=== PATIENT | female | born 1995 | race Caucasian/White ===

== ENCOUNTER 2018-12-14 15:03 | Emergency (ER) | payer SELFPAY ==
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
[2018-12-14] MEDS ORDERED: Ketorolac 60 MG/2 ML SDV IM ONE (16:57)
[2018-12-14 17:09] LABS: CHLORIDE,CL 107 mmol/L (98-107); SODIUM,NA 143 mmol/L (136-145)
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
== END 2018-12-14 18:35 | disposition home or self-care (01) ==
LOC: MW.ED 15:03
DX: T76.11XA Adult physical abuse, suspected, initial encounter (principal); S09.90XA Unspecified injury of head, initial encounter; S80.02XA Contusion of left knee, initial encounter; S80.01XA Contusion of right knee, initial encounter; S00.83XA Contusion of other part of head, initial encounter; S30.810A Abrasion of lower back and pelvis, initial encounter; S29.9XXA Unspecified injury of thorax, initial encounter; F17.210 Nicotine dependence, cigarettes, uncomplicated; Y04.2XXA Assault by strike against or bumped into by another person, initial encounter
CPT/HCPCS: 36415; 70450; 71045; 72100; 72192; 80053; 80305; 81001; 81025; 85025; 87491; 87591; 96372; 99284; J1885

== ENCOUNTER 2018-12-14 18:17 | Emergency (ER) | payer MEDICAID | END 2018-12-14 19:00 | disposition home or self-care (01) | LOC: MW.ED 18:17 | DX: Z11.8 Encounter for screening for other infectious and parasitic diseases (principal) | CPT/HCPCS: 36415; 87340; 87389; 99281 ==

== ENCOUNTER 2018-12-22 03:41 | Emergency (ER) | payer MEDICAID ==
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
[2018-12-22 04:40] LABS: CHLORIDE,CL 106 mmol/L (98-107); SODIUM,NA 140 mmol/L (136-145)
== END 2018-12-22 08:41 ==
LOC: MW.ED 03:41
DX: F32.9 Major depressive disorder, single episode, unspecified (principal); Z79.899 Other long term (current) drug therapy
CPT/HCPCS: 36415; 80053; 80305; 81001; 83735; 84443; 85025; 93005; 99285; G0480; 99283

== ENCOUNTER 2020-11-26 12:47 | Emergency (ER) | payer OTHER ==
--- NOTE | 2020-11-26 13:27 | EDM.PDOC ---
ED HPI GENERAL MEDICAL PROBLEM - General Chief Complaint: Headache Stated Complaint: HIP, BACK PAIN Time Seen by Provider: 11/26/20 13:15 - History of Present Illness INITIAL COMMENTS - FREE TEXT/NARRATIVE: 25-year-old female who is otherwise well presents with left sided back pain and headache after a fall. This morning while walking into [facility] the patient slipped on ice falling backward and landing on her left posterior hip and striking her head. She had brief tunnel vision but no LOC. Initially with adrenaline she was walking around the store and felt relatively well but over the last several hours has developed worsening pain there is a significant headache that worsens with coughing worsens with talking worsens with laughter. She also has a significant left posterior upper back as well as midline lower back and left posterior pelvic pain. No extremity pain no lower extremity weakness no difficulty walking no urinary or bowel incontinence. Head, hip, back, tailbone Pain Score (Numeric/FACES): 6 - Related Data Allergies Allergy/AdvReac Type Severity Reaction Status Date / Time No Known Allergies Allergy Verified 11/26/20 13:18 Home Meds: Home Meds Loratadine/Pseudoephedrine [Claritin-D 24 Hour Tablet] 1 tab PO DAILY PRN 11/26/20 [History] Past Medical History Psychiatric History: Reports: Anxiety, Bipolar, Depression, Panic Attack, Other (See Below) Other Psychiatric History: manic depressive - Infectious Disease History Infectious Disease History: Reports: Chicken Pox Social & Family History - Family History Family Medical History: No Pertinent Family History ED ROS GENERAL - Review of Systems Review Of Systems: See Below Free Text/Narrative/Comment: Eyes: No vision problems. Neck: No neck stiffness. Respiratory: No shortness of breath. Cardiac: No chest pain. Gastrointestinal: No nausea, vomiting or abdominal pain. Musculoskeletal: Per HPI Neurologic: Per HPI ED EXAM, GENERAL - Physical Exam Exam: See Below Free Text/Narrative:: General Appearance: No acute distress, appears comfortable Skin: No rash HEENT: Normocephalic/atraumatic, sclera anicteric, mucous membranes moist Neck: Normal range of motion, no midline cervical spine tenderness Chest and Lungs: Bilateral breath sounds, clear to auscultation Cardiovascular: Regular rate and rhythm, no murmur Abdomen: Soft, non-tender Back: No midline T-spine tenderness there is midline L-spine tenderness L2-L5 without crepitus or deformity or step-off Musculoskeletal: Minimal tenderness over left scapula and inferior left trap underlying crepitus or deformity, no focal tenderness of the bilateral shoulders elbows hips or knees. No limitation in range of motion of the bilateral upper or lower extremities. Neurologic: Awake, alert, no obvious deficits, moving all extremities Psychiatric: Appropriate, cooperative Course - Vital Signs Last Recorded V/S: Last Vital Signs Temp 97.3 F 11/26/20 13:14 Pulse 93 11/26/20 13:14 Resp 17 11/26/20 13:14 BP 117/76 11/26/20 13:14 Pulse Ox 96 11/26/20 13:14 - Orders/Labs/Meds Labs: Laboratory Tests 11/26/20 Range/Units 13:25 Urine HCG, Qual NEGATIVE (NEGATIVE) Departure - Departure Time of Disposition: 14:48 Disposition: Home, Self-Care 01 Condition: Good Clinical Impression: Concussion, Contusion of lower back - Discharge Information *PRESCRIPTION DRUG MONITORING PROGRAM REVIEWED*: Not Applicable *COPY OF PRESCRIPTION DRUG MONITORING REPORT IN PATIENT ÓSCAR: Not Applicable Instructions: Concussion, Adult Referrals: PCP,None [Primary Care Provider] - Additional Instructions: You may have trouble with headache and lower back discomfort for the next few days. However you should be feeling your normal self by to light next week. If you have persistent symptoms then please follow-up with one of the primary care clinics. [facility] [address] [place] [address] [place] [address] The following information is given to patients seen in the emergency department who are being discharged to home. This information is to outline your options for follow-up care. We provide all patients seen in our emergency department with a follow-up referral. The need for follow-up, as well as the timing and circumstances, are variable depending upon the specifics of your emergency department visit. If you don't have a primary care physician on staff, we will provide you with a referral. We always advise you to contact your personal physician following an emergency department visit to inform them of the circumstance of the visit and for follow-up with them and/or the need for any referrals to a consulting specialist. The emergency department will also refer you to a specialist when appropriate. This referral assures that you have the opportunity for follow-up care with a specialist. All of these measure are taken in an effort to provide you with optimal care, which includes your follow-up. Under all circumstances we always encourage you to contact your private physician who remains a resource for coordinating your care. When calling for follow-up care, please make the office aware that this follow-up is from your recent emergency room visit. If for any reason you are refused follow-up, please contact the [facility] Emergency Department at and asked to speak to the emergency department charge nurse. Sepsis Event Note (ED) - Evaluation Sepsis Screening Result: No Definite Risk - Focused Exam Vital Signs: Vital Signs Temp Pulse Resp BP Pulse Ox 11/26/20 13:14 97.3 F 93 17 117/76 96 - Assessment/Plan Assessment:: 25-year-old female presenting after ground-level fall as described primary survey intact secondary survey notable for findings in the lower back in the left posterior pelvis given headache and other symptoms CT scan of the brain ordered as well as lumbar x-ray and pelvis x-ray. I believe you can clinically clear the chest abdomen and nonbony pelvis as well as the extremities. Patient ambulates well she has no pain in her hips. Patient has some mild superficial tenderness in the left trap but she has no underlying focal bony tenderness her breath sounds are equal she is no shortness of breath she has no pleuritic chest pain I do not have a clinical concern for pneumothorax or underlying fracture of the upper torso. 1450: Imaging negative. Return precaution discussed and understood patient discharged.
--- NOTE | 2020-11-26 14:30 | CR ---
HISTORY: Fall. Midline lumbar spine tenderness. TECHNIQUE: Lumbar spine 3 views. COMPARISON: Lumbar spine radiographs 12/14/2018. FINDINGS: Five lumbar type vertebral bodies. Alignment, vertebral body heights, and disc spaces are maintained. IMPRESSION: Unremarkable radiographs of the lumbar spine. Dictated by Sebastian Guzmán MD @ Nov 26 2020 2:26PM Signed by Dr. Sebastian Guzmán @ Nov 26 2020 2:29PM
--- NOTE | 2020-11-26 14:30 | CT ---
HISTORY: Fall. Head trauma. TECHNIQUE: CT brain without contrast. COMPARISON: CT brain 12/14/2018. FINDINGS: No acute intracranial hemorrhage. No extra-axial collection. No mass effect or midline shift. No ventricular dilation. Cisterns are patent. De Anda-white differentiation is maintained. Calvarium is intact. Visualized paranasal sinuses and mastoid air cells are clear. IMPRESSION: No acute intracranial abnormality. Please note that all CT scans at this facility use dose modulation, iterative reconstruction, and/or weight-based dosing when appropriate to reduce radiation dose to as low as reasonably achievable. Dictated by Sebastian Guzmán MD @ Nov 26 2020 2:26PM Signed by Dr. Sebastian Guzmán @ Nov 26 2020 2:28PM
--- NOTE | 2020-11-26 14:34 | CR ---
HISTORY: Fall. Posterior sacral and anterior superior iliac spine tenderness. TECHNIQUE: Frontal view of the pelvis. COMPARISON: None. FINDINGS: No fracture. Hip joints are maintained. Pubic symphysis and sacroiliac joints are maintained. IMPRESSION: Unremarkable radiograph of the pelvis. Dictated by Sebastian Guzmán MD @ Nov 26 2020 2:32PM Signed by Dr. Sebastian Guzmán @ Nov 26 2020 2:32PM
== END 2020-11-26 15:06 | disposition home or self-care (01) ==
LOC: MW.ED 12:47
DX: S06.0X0A Concussion without loss of consciousness, initial encounter (principal); S30.0XXA Contusion of lower back and pelvis, initial encounter; M54.6 Pain in thoracic spine; R10.2 Pelvic and perineal pain; W00.0XXA Fall on same level due to ice and snow, initial encounter; Y93.01 Activity, walking, marching and hiking; Y92.512 Supermarket, store or market as the place of occurrence of the external cause
CPT/HCPCS: 70450; 70450-26; 72100; 72100-26; 72170; 72170-26; 81025; 99284; 99284-25